=== PATIENT | male | born 1955 | race Caucasian/White ===

== ENCOUNTER 2024-01-01 17:19 | Observation (INO) | payer OTHER, MEDICARE ==
[2024-01-01 17:35] VITALS: BMI 35.3
[2024-01-01] MEDS ORDERED: Acetaminophen 325 MG TAB PO PRN (18:06)
[2024-01-01] MEDS ORDERED: Acetaminophen 650 MG Suppository PR PRN (18:06)
[2024-01-01] MEDS ORDERED: Ondansetron PF 4 MG/2 ML Vial IVP PRN (18:17)
[2024-01-01 19:27] LABS: Troponin I Less than 0.010 ng/mL (< 0.028)
[2024-01-01] MEDS: Atorvastatin Calcium 40 MG TAB PO SCH (22:37)
[2024-01-01] MEDS: Famotidine 20 MG TAB PO SCH (22:37)
[2024-01-01 22:49] LABS: Troponin I Less than 0.010 ng/mL (< 0.028)
[2024-01-02 04:21] LABS: #Basophils Less than 0.03 10x3/uL (0.0-0.2); %Basophils 0.4 % (0.0-1.0); %Eosinophils 3.7 % (0.0-10.0); %Lymphocytes 17.6 % (21.0-51.0); %Monocytes 7.9 % (0.0-10.0); %Neutrophils 69.8 % (42.0-75.0); Hematocrit 39.7 % (42.0-52.0); Hemoglobin 13.5 g/dL (14.0-18.0); Mean Corpuscular Hemoglobin 32.5 pg (27.0-31.0); Mean Corpuscular Volume 95.7 fL (78.0-98.0); Mean Platelet Volume 9.4 fL (7.4-10.4); Platelet Count 158 10x3/uL (130-400); Red Blood Cell (RBC) Count 4.15 mill/uL (4.70-6.10)
[2024-01-02 04:53] LABS: Anion Gap 13 mmol/L (10-20); BUN (Urea Nitrogen) 12 mg/dL (8.4-25.7); Calc. Creatinine Clearance 115 mL/min (70-130); Calcium 8.9 mg/dL (7.8-10.44); Carbon Dioxide 26 mmol/L (23-31); Cardiac Risk 3.1 (Less than 4.5); Chloride 104 mmol/L (98-107); Cholesterol 112 mg/dl (< 200 Desired); Estimated GFR 78; Glucose 101 mg/dL (80-115); HDL Cholesterol 36 mg/dL (>60 Neg Risk); LDL Cholesterol, Calculated 56 mg/dL; Potassium 3.8 mmol/L (3.5-5.1); Sodium 139 mmol/L (136-145); Triglycerides 99 mg/dL (Less than 150)
[2024-01-02] MEDS: Enoxaparin 40 MG (0.4 mL) SYRINGE SC SCH (08:18)
[2024-01-02] MEDS: Lisinopril 20 MG TAB PO SCH (08:18)
[2024-01-02] MEDS: Hydrochlorothiazide 25 MG TAB PO SCH (08:18)
[2024-01-02] MEDS: Aspirin 81 mg Enteric Coated Tablet PO SCH (08:19)
[2024-01-02] MEDS ORDERED: Regadenoson 0.4 MG/5 ML SYRINGE ONE (11:11)
[2024-01-02 16:17] VITALS: BP 129/74; TEMP 98.1
== END 2024-01-02 17:15 | disposition home or self-care (01) ==
LOC: 2SW 17:19
PROVIDERS: ADMIT Family Medicine; ATTEND Family Medicine
DX: R07.9 Chest pain, unspecified (principal); I10 Essential (primary) hypertension; Z79.899 Other long term (current) drug therapy
CPT/HCPCS: 36415; 36416; 78452; 80048; 80061; 83036; 84443; 85025; 93017; A9502; G0378; J2785

== ENCOUNTER 2024-02-03 23:30 | Inpatient (IN) | payer OTHER, MEDICARE ==
[2024-02-04 00:12] VITALS: BMI 34.9
[2024-02-04] MEDS ORDERED: Acetaminophen 325 MG TAB PO PRN (00:17)
[2024-02-04] MEDS ORDERED: Nitroglycerin 0.4 MG TAB (25 Tab Bottle) SL PRN (00:17)
[2024-02-04] MEDS ORDERED: Acetaminophen 650 MG Suppository PR PRN (00:17)
[2024-02-04] MEDS ORDERED: Ondansetron ODT 4 MG TAB PO PRN (00:17)
[2024-02-04] MEDS ORDERED: Aspirin Chewable 81 MG TAB PO SCH (00:30)
[2024-02-04 01:48] LABS: Troponin I Less than 0.010 ng/mL (< 0.028)
[2024-02-04 04:46] LABS: #Basophils 0.03 10x3/uL (0.0-0.2); %Basophils 0.7 % (0.0-1.0); %Eosinophils 2.5 % (0.0-10.0); %Lymphocytes 21.7 % (21.0-51.0); %Monocytes 8.1 % (0.0-10.0); Hematocrit 38.6 % (42.0-52.0); Hemoglobin 13.4 g/dL (14.0-18.0); Mean Corpuscular HGB CONC 34.7 g/dL (32.0-36.0); Mean Corpuscular Hemoglobin 31.8 pg (27.0-31.0); Mean Corpuscular Volume 91.7 fL (78.0-98.0); Mean Platelet Volume 9.5 fL (7.4-10.4); Platelet Count 166 10x3/uL (130-400); RBC Distribution Width 12.8 % (11.5-14.5); Red Blood Cell (RBC) Count 4.21 mill/uL (4.70-6.10)
[2024-02-04 04:59] LABS: Troponin I Less than 0.010 ng/mL (< 0.028)
[2024-02-04 05:01] LABS: Anion Gap 13 mmol/L (10-20); BUN (Urea Nitrogen) 14 mg/dL (8.4-25.7); Calc. Creatinine Clearance 111 mL/min (70-130); Calcium 9.5 mg/dL (7.8-10.44); Carbon Dioxide 28 mmol/L (23-31); Cardiac Risk 3.3 (Less than 4.5); Chloride 102 mmol/L (98-107); Cholesterol 127 mg/dl (< 200 Desired); Estimated GFR 76; Glucose 108 mg/dL (80-115); HDL Cholesterol 39 mg/dL (>60 Neg Risk); LDL Cholesterol, Calculated 64 mg/dL; Sodium 139 mmol/L (136-145); Triglycerides 118 mg/dL (Less than 150)
[2024-02-04] MEDS: Enoxaparin 40 MG (0.4 mL) SYRINGE SC SCH (09:24)
[2024-02-04] MEDS: Aspirin Chewable 81 MG TAB PO SCH (09:25)
[2024-02-04] MEDS: Lisinopril 20 MG TAB PO SCH (09:25)
[2024-02-04] MEDS: Hydrochlorothiazide 25 MG TAB PO SCH (09:25)
[2024-02-04 15:55] VITALS: BP 125/71; TEMP 98.3
== END 2024-02-04 19:42 | disposition home or self-care (01) | DRG 556 ==
LOC: 2NO 23:44 → OBSVTOIN 02-04 00:17
PROVIDERS: ADMIT Family Medicine; ATTEND Family Medicine
DX: M25.512 Pain in left shoulder (principal); M54.2 Cervicalgia; I10 Essential (primary) hypertension; Z98.890 Other specified postprocedural states; Z98.1 Arthrodesis status
CPT/HCPCS: 36415; 80048; 80061; 84484; 85025

== ENCOUNTER 2024-12-30 06:00 | Day surgery (SDC) | payer OTHER, MEDICARE ==
[2024-12-29 15:09] VITALS: BMI 34.2
[~2024-12-30 06:00] MED LIST: Fluorouracil 100 MG, Enoxaparin 25 MG, EPINEPHrine 0.3 MG in Ophthalmic Irrigation Solu... IRR SCH
[2024-12-30] MEDS ORDERED: Cyclopentolate 1% Opth Drop 2 ML BOT ONE (06:08)
[2024-12-30] MEDS ORDERED: PROPOFOL 20 ML ONE ×2 (06:42→07:25)
[2024-12-30] MEDS ORDERED: Lidocaine 4% PF 5 ML AMP ONE (07:13)
[2024-12-30] MEDS ORDERED: Maxitrol 0.1% Opth Oint 3.5 GM TUBE ONE (07:13)
[2024-12-30] MEDS ORDERED: Lidocaine 1% PF 5 ML VIAL ONE ×2 (07:13→07:16)
[2024-12-30] MEDS ORDERED: Enoxaparin 30 MG (0.3 mL) SYRINGE ONE (07:13)
[2024-12-30] MEDS ORDERED: TISSUEBLUE 0.5 ML SYRINGE IO ONE (07:13)
[2024-12-30] MEDS ORDERED: CEFAZOLIN 1 GM VIAL ONE (07:13)
== END 2024-12-30 08:45 | disposition home or self-care (01) ==
LOC: SDC 06:00
PROVIDERS: ATTEND Ophthalmology Retina Specialist
DX: H35.372 Puckering of macula, left eye (principal); I10 Essential (primary) hypertension; Z96.652 Presence of left artificial knee joint; Z79.82 Long term (current) use of aspirin
CPT/HCPCS: J0166; J0690; J1650; J2704; J3010; J3490; J9190